=== PATIENT | male | born 1960 | race Caucasian/White ===

== ENCOUNTER 2019-10-23 11:14 | Emergency (ER) | payer OTHER ==
[~2019-10-23] VITALS: Ht 190.5 cm; Wt 112.3 kg
[2019-10-23] MEDS ORDERED: MECLIZINE CHEWABLE 25 MG TAB PO ONE (12:00)
[2019-10-23] MEDS ORDERED: ONDANSETRON ODT 4 MG PO ONE (12:00)
[2019-10-23 12:14] LABS: ALBUMIN 3.7 g/dL (3.4-5.0); ANION GAP 5 mmol/L (5-15); CALCIUM 8.8 mg/dL (8.5-10.1); CHLORIDE 99 mmol/L (98-107); CREATININE 1.09 mg/dL (0.7-1.3)
[2019-10-23 12:15] LABS: BASOPHILS # (AUTO) 0.04 x10^3/uL (0-0.1); BASOPHILS % (AUTO) 1 % (0-1); EOSINOPHILS # (AUTO) 0.07 x10^3/uL (0-0.4); EOSINOPHILS % (AUTO) 1 % (1-7); LYMPHOCYTES # (AUTO) 1.91 x10^3/uL (1-3.4); LYMPHOCYTES % (AUTO) 28 % (22-44); MD NO; MEAN CORPUSCULAR HEMOGLOBIN 33.8 pg (27.5-34.5); MEAN CORPUSCULAR HGB CONC 33.8 g/dL (33.2-36.2); MEAN CORPUSCULAR VOLUME 99.8 fL (81-97); MEAN PLATELET VOLUME 8.2 fL (7.4-10.4); MONOCYTES # (AUTO) 0.39 x10^3/uL (0.2-0.8); MONOCYTES % (AUTO) 6 % (2-9); NEUTROPHILS # (AUTO) 4.46 x10^3/uL (1.8-6.8); NEUTROPHILS % (AUTO) 65 % (42-75); PLATELET COUNT 229 x10^3/uL (130-400); RED BLOOD COUNT 4.21 x10^6/uL (4.38-5.82); RED CELL DISTRIBUTION WIDTH 12.6 % (9.4-14.8)
[2019-10-23] MEDS ORDERED: ONDANSETRON ODT 4 MG ONE (12:37)
[2019-10-23] MEDS ORDERED: MECLIZINE CHEWABLE 25 MG TAB ONE (12:38)
--- NOTE | 2019-10-23 13:05 | NUR ---
PT VERBALIZES IMPROVEMENT IN BOTH NAUSEA AND DIZZINESS. OOB AND AMBULATED TO BATHROOM, UPRIGHT STEADY GAIT.
--- NOTE | 2019-10-23 13:22 | NUR ---
DR ELIZABETH AT BEDSIDE. D/C PLAN DISCUSSED AND QUESTIONS ANSWERED.
[2019-10-23 13:23] VITALS: BP 172/89
--- NOTE | 2019-10-23 13:25 | NUR ---
Patient/Caregiver given discharge instructions and they have confirmed that they understand the instructions. Patient ambulatory with steady gait.
== END 2019-10-23 13:33 | disposition home or self-care (01) ==
LOC: ED 13:27
DX: R42 Dizziness and giddiness (principal); R11.2 Nausea with vomiting, unspecified
CPT/HCPCS: 36415; 71045; 80048; 82040; 85025; 93005; 99284; Q0162